=== PATIENT | female | born 1955 | race Caucasian/White ===

== ENCOUNTER → 2017-05-08 | Outpatient (CLI) | payer OTHER | LOC: FIMAGING 09:58 | PROVIDERS: ATTEND Obstetrics & Gynecology Gynecology | DX: Z12.31 Encounter for screening mammogram for malignant neoplasm of breast (principal); N85.00 Endometrial hyperplasia, unspecified; D25.1 Intramural leiomyoma of uterus; I87.2 Venous insufficiency (chronic) (peripheral); Z78.0 Asymptomatic menopausal state; Z79.899 Other long term (current) drug therapy | CPT/HCPCS: G0202 ==

== ENCOUNTER 2018-05-08 08:22 | Day surgery (SDC) | payer OTHER ==
--- NOTE | 2018-04-25 18:43 | GHP ---
[f rep st] PREOP HISTORY AND PHYSICAL PATIENT NAME: Kizzy Kwok DATE OF : 1955 The patient is slated for surgery in the next couple weeks, but it has not been scheduled yet, so the N number has not been assigned. PREOPERATIVE HISTORY: The patient is a 62-year-old, G1, P0, white female who has had postmenopausal bleeding sporadically throughout this year. The patient has been menopausal approximately 10 years and this is definitely newer this year. She reports very scant bleeding that would only be noticed when wiping randomly a couple times over many months. The patient denied any pain. This was not associated with intercourse and the patient has not been having any vaginal discharge, odor, burning, or itching. The patient reports being very regular on her hormone replacement and not missing any progesterone pills. This was a problem prior to 2016 when the patient was not regularly taking her progesterone. Because of this history, the patient had an ultrasound by Dr. Coleman, at which time she was told her lining was borderline and she underwent an endometrial biopsy. The patient was told the results were normal. At that time, the patient was not having vaginal bleeding. The patient was not alarmed by the bleeding this year and it was not until her annual exam, at which time she had a Pap smear which showed endometrial cells, that she became alarmed. The Pap itself is normal and the HPV is negative. The patient was referred for evaluation and an ultrasound shows a reassuring uterus and endometrium. The uterus itself is 4 x 3 x 4 cm with an endometrial thickness of 0.37 cm. There is 2 small subserosal fibroids each 1 cm. Bilaterally, her ovaries are small and normal. There is no free fluid. The patient is advised about the findings on ultrasound. Due to the postmenopausal bleeding, I recommend sampling the endometrial cavity. The patient recalls the endometrial biopsy last year as being a very painful and wants to pursue evaluation under anesthesia. I did advise her that a hysteroscopy allows for a more thorough evaluation and more tissue sampling with either D and C or removal of a polyp if found. The patient is interested in pursuing this. Due to her menopausal status and being nulliparous, I recommend doing Cytotec to help with cervical ripening. The risks and benefits of the procedure were discussed with the patient and the consent form was signed. PAST MEDICAL HISTORY: The patient has chronic bowel issues due to history of adhesions from multiple abdominal surgeries and a ruptured appendix. Patient has had to have bowel resections and has subsequent chronic diarrhea as well as partial bowel obstructions. Also, history of depression and anxiety. History of infertility. Mild stress urinary incontinence. PAST SURGICAL HISTORY: Ruptured appendectomy in 1976, laparoscopic ovarian cyst removal at which time the bowel was perforated, which led to subsequent surgeries for bowel resection and reanastomosis. This was 1990. Additional abdominal surgeries for bowel adhesions and obstruction in 2009. In December of 2017 , left knee neuroma resected with a history also of left ACL repair. PAST OBSTETRIC HISTORY: In 1989, SAB. ALLERGIES: Penicillin, causing a rash. CURRENT MEDICATIONS: Cymbalta daily. Cholestyramine due to chronic diarrhea. Hormone replacement with 0.05 mg twice weekly as well as progesterone orally at night. Estradiol cream 1 g twice weekly vaginally. Vitamin D 2000 international units a day. Fish oil daily. FAMILY HISTORY: Mother with diabetes as well as dementia. Father with heart disease and at 68. SOCIAL HISTORY: The patient is and works as a senior management consultant. The patient is a nonsmoker. No marijuana use. Caffeine 1-2 cups a day. Alcohol, 4-6 drinks a week. Regular daily exercise. PHYSICAL EXAM: GENERAL: The patient is a well-developed, well-nourished, anxious white female in no physical distress. VITAL SIGNS: Weight 118 pounds. Blood pressure 108/64. Clinically afebrile. HEENT: No thyromegaly. No adenopathy. The oropharynx is clear. LUNGS: Clear to auscultation bilaterally. CARDIOVASCULAR: Regular rate and rhythm. ABDOMEN: Soft, nontender. No masses palpable. PELVIC: Normal external genitalia. Speculum exam reveals a small normal cervix and no abnormal discharge or erythema. On bimanual exam, the uterus is very small and anteflexed. No adnexal masses. ASSESSMENT: Postmenopausal bleeding with borderline endometrial thickness. The patient wants hospital evaluation with a hysteroscopy and dilation and curettage if needed or removal of polyp if found. On hormone replacement and the patient reports compliance. PLAN: Will proceed with a hysteroscopy and evaluation of endometrium. We will try to schedule before the [place] leaves [place] on [place] 17 for her 35th year anniversary. The patient is a very difficult IV stick by her report. She states that multiple times the IVs will not infuse appropriately and she has had to have anesthesiologist start the IVs. We will do cervical ripening with Cytotec prior to surgery. Prescriptions ordered to [facility]. The patient is advised we will do preoperative antibiotics and she will have on SCDs during the procedure. /[id number]/MODL MTDD
[2018-05-08] MEDS ORDERED: ceFAZolin 2 GM/DEXTROSE 100 ML IV ONE (08:34)
[2018-05-08] MEDS ORDERED: LR 1,000 ML IV ONE (08:35)
[2018-05-08] MEDS ORDERED: MIDAZOLAM 2 MG/2 ML VIAL IVP ONE (10:36)
--- NOTE | 2018-05-08 10:36 | PDHPUP ---
History & Physical Update H&P update statement: This history and physical update is based on an assessment of the patient which was completed after admission or registration (within 24 hours), but prior to the surgery/procedure. H&P update: no change in patient's condition since H&P completed
[2018-05-08] MEDS ORDERED: SILVER NITRATE APPLICATOR 1 APPL TP ONE (10:40)
--- NOTE | 2018-05-08 10:44 | PDANEPAE ---
ANE History of Present Illness Hysteroscopy polypectomy ANE Past Medical History - Cardiovascular History Hx Hypertension: No Hx Arrhythmias: No Hx Chest Pain: No Hx Coronary Artery / Peripheral Vascular Disease: No Hx CHF / Valvular Disease: No Hx Palpitations: No - Pulmonary History Hx COPD: No Hx Asthma/Reactive Airway Disease: No Hx Recent Upper Respiratory Infection: No Hx Oxygen in Use at Home: No Hx Sleep Apnea: No Sleep Apnea Screening Result - Last Documented: Negative - Neurologic History Hx Cerebrovascular Accident: No Hx Seizures: No Hx Dementia: No - Endocrine History Hx Diabetes: No Hypothyroid: No Hyperthyroid: No Obesity: no - Renal History Hx Renal Disorders: No - Liver History Hx Hepatic Disorders: No - Neurological & Psychiatric Hx Hx Neurological and Psychiatric Disorders: No - Cancer History Hx Cancer: No - Congenital Disorder History Hx Congenital Disorders: No - GI History GERD: no Hx Gastrointestinal Disorders: Yes Gastrointestinal History Comment: BOWEL SURGERIES MULTIPLE - Other Health History Other Health History: NEG - Surgical History Prior Surgeries: NEUROMA LEG L. NEUROMA L FOOT. SINUS SURG. SHOULDER L SCOPE. ABDOMINAL - ADHESIONS X2 FROM APPY. APPENDECTOMY. REPAIR PERFORATED INTESTINE X2. CYST OVARIAN ANE Review of Systems Review of systems is: negative Review of Systems: - Exercise capacity METS (RN): 5 METS ANE Patient History - Allergies Allergies/Adverse Reactions: Penicillins Allergy (Severe, Verified 03/23/10 15:43) Rash promethazine [Promethazine] Allergy (Unknown, Verified 03/30/10 05:43) - Home Medications Home medications: home medication list seen and reviewed Home Medications: Cholestyramine (with Sugar) 05/02/18 [Last Taken 05/07/18] DULoxetine 05/02/18 [Last Taken 05/07/18] Estrogens, Conjugated 05/02/18 [Last Taken 2 Days Ago ~05/06/18] Herbals/Supplements -Info Only 05/02/18 [Last Taken 1 Week Ago ~05/01/18] Progesterone 05/02/18 [Last Taken 05/07/18] Vivelle-Dot 0.1MG (*) 05/02/18 [Last Taken 05/08/18] - NPO status NPO Since - Liquids (Date): 05/08/18 NPO Since - Liquids (Time): 06:45 NPO Since - Solids (Date): 05/07/18 NPO Since - Solids (Time): 20:00 - Anes Hx Anes Hx: no prior problems - Smoking Hx Smoking Status: Never smoked - Family Anes Hx Family Hx Anesthesia Complications: NEG ANE Labs/Vital Signs - Vital Signs Blood Pressure: 150/89 Heart Rate: 71 Respiratory Rate: 14 O2 Sat (%): 97 Height: 162.56 cm Weight: 54.431 kg ANE Physical Exam - Airway Neck exam: FROM Mallampati Score: Class 1 Mouth exam: normal dental/mouth exam - Pulmonary Pulmonary: no respiratory distress, no rales or rhonchi - Cardiovascular Cardiovascular: regular rate and rhythym, no murmur, rub, or gallop ANE Anesthesia Plan Anesthesia Plan: GA w LMA
[2018-05-08] MEDS ORDERED: fentaNYL 100 MCG/2 ML INJ ONE ×2 (10:50→11:39)
[2018-05-08] MEDS ORDERED: PROPOFOL/EMULSION 500 MG/50 ML BOTTLE IV ONE (10:51)
[2018-05-08] MEDS ORDERED: KETOROLAC 30 MG/1 ML SDV ONE ×2 (11:18→12:21)
[2018-05-08] MEDS ORDERED: LIDOCAINE 2% 2 ML INJ ONE (11:18)
[2018-05-08] MEDS ORDERED: DEXAMETHASONE 4 MG/ML VIAL ONE (11:18)
[2018-05-08] MEDS ORDERED: PROPOFOL 200 MG/20 ML VIAL ONE (11:24)
[2018-05-08] MEDS ORDERED: ONDANSETRON 4 MG/2 ML VIAL ONE (11:56)
--- NOTE | 2018-05-08 12:21 | POSTOPPROG ---
Post Op Note Date of Operation: 05/08/18 Surgeon: Zoraida Miller Anesthesiologist: Neelima Hampton MD Anesthesia: LMA Pre-op Diagnosis: post-menopausal bleeding, on HRT Post-op Diagnosis: same Indication: [employer] Bld in 2018, on HRT, u/s with .37 EMT, declines office EMBx Procedure: HSC with morcellation of lining Findings: thin endometrium with nl cavity, sm tissue in rt cornua, dilated to 6mm Inf/Abcess present in the surg proc area at time of surgery?: No Depth: Organ Space EBL: Minimal Complications: none, deficit of 240ml Specimen(s): endometrial lining
[2018-05-08] MEDS ORDERED: oxyCODONE IR 5 MG TAB PO PRN (12:24)
[2018-05-08] MEDS ORDERED: NALOXONE HCL 0.4 MG/ML INJ IVP PRN (12:24)
[2018-05-08] MEDS ORDERED: ACETAMINOPHEN 500 MG TAB PO PRN (12:24)
[2018-05-08] MEDS ORDERED: fentaNYL 100 MCG/2 ML INJ IVP PRN (12:24)
[2018-05-08] MEDS ORDERED: ONDANSETRON 4 MG/2 ML VIAL IVP PRN (12:24)
--- NOTE | 2018-05-08 12:27 | POSTANESTH ---
Post Anesthetic Evaluation Cardiovascular Status: Normal, Stable Respiratory Status: Normal, Stable Level of Consciousness/Mental Status: Can Participate in Eval Pain Control: Adequate, Prn Tx Ordered Nausea/Vomiting Control: Adequate, Prn Tx Ordered Complications Possibly Related to Anesthesia: None Noted
[2018-05-08 13:08] VITALS: BP 128/74
== END 2018-05-08 13:15 | disposition home or self-care (01) ==
LOC: FSGY 08:22
PROVIDERS: ATTEND Obstetrics & Gynecology
PROC: 0UDB8ZX Extraction of Endometrium, Via Natural or Artificial Opening Endoscopic, Diagnostic (ICD-10-PCS; principal; 2018-05-08 09:45)
DX: N95.0 Postmenopausal bleeding (principal); D25.2 Subserosal leiomyoma of uterus; Z79.890 Hormone replacement therapy; Z88.0 Allergy status to penicillin
CPT/HCPCS: 58558; C1782; J0690; J1100; J1885; J2250; J2405; J2704; J3010

== ENCOUNTER → 2018-06-20 | Outpatient (CLI) | payer OTHER | LOC: FIMAGING 15:01 | PROVIDERS: ATTEND Obstetrics & Gynecology | DX: Z12.31 Encounter for screening mammogram for malignant neoplasm of breast (principal) ==